=== PATIENT | female | born 1970 | race American Indian/Alaskan Native ===

== ENCOUNTER 2017-02-20 22:37 | Emergency (ER) | payer SELFPAY ==
[2017-02-20 22:37] VITALS: BMI 33.9
[2017-02-20 22:45] VITALS: BP 146/94; PULSE 98; RESP 16; TEMP 98.6; O2SAT 97
--- NOTE | 2017-02-20 23:14 | C.PDOC ---
History Of Present Illness 46 year old female presents to the ER with a complaint of swelling to the right chest area. Patient is s/p bilateral mastectomy for gender reassignment and states she noticed swelling near the right mastectomy site. Denies chest pain, drainage, back pain, or SOB. Time Seen by Provider: 02/20/17 22:53 Chief Complaint (Nursing): Breast Problem History Per: Patient History/Exam Limitations: no limitations Onset/Duration Of Symptoms: Days Current Symptoms Are (Timing): Still Present Recent travel outside of the [place]: No Past Medical History Reviewed: Historical Data, Nursing Documentation, Vital Signs Vital Signs: Last Vital Signs Temp 98.6 F 02/20/17 22:41 Pulse 98 H 02/20/17 22:41 Resp 16 02/20/17 22:41 BP 146/94 H 02/20/17 22:41 Pulse Ox 97 02/21/17 01:41 - Medical History PMH: Asthma Family History: States: Unknown Family Hx - Social History Hx Tobacco Use: No Hx Alcohol Use: No Hx Substance Use: No - Immunization History Hx Tetanus Toxoid Vaccination: Yes Hx Influenza Vaccination: No Hx Pneumococcal Vaccination: No Review Of Systems Constitutional: Negative for: Fever, Chills Cardiovascular: Negative for: Chest Pain Respiratory: Negative for: Shortness of Breath Musculoskeletal: Negative for: Back Pain Skin: Positive for: Other (Swelling to right chest) Physical Exam - Physical Exam Appears: Non-toxic, No Acute Distress Skin: Warm, Dry Head: Atraumatic, Normacephalic Eye(s): bilateral: Normal Inspection Chest: Other (Scar across anterior chest wall with mildly protruding skin flap to right lateral chest wall at axillary line. No tenderness, erythema, warmth, or fluctuance. Incision site well healed.) Cardiovascular: Rhythm Regular Respiratory: Normal Breath Sounds, No Rales, No Rhonchi, No Wheezing Neurological/Psych: Oriented x3, Normal Speech ED Course And Treatment O2 Sat by Pulse Oximetry: 97 (Room air) Pulse Ox Interpretation: Normal Progress Note: Patient reassured and instructed to follow up with surgeon for further evaluation. Disposition Counseled Patient/Family Regarding: Diagnosis, Need For Followup, Rx Given - Disposition Referrals: PMD, PMD [Other] Disposition: HOME/ ROUTINE Disposition Time: 23:11 Condition: STABLE Additional Instructions: Please follow up with your surgeon for further evaluation Return to ER if worse Forms: [employer] (Lao), General Discharge Instructions - Clinical Impression Clinical Impression: Encounter for medical assessment - PA / HEAD OF GEOGRAPHY / Resident Statement MD/DO has reviewed & agrees with the documentation as recorded. - Scribe Statement The provider has reviewed the documentation as recorded by the Scribe Sathya Ureña All medical record entries made by the Karoibe were at my direction and personally dictated by me. I have reviewed the chart and agree that the record accurately reflects my personal performance of the history, physical exam, medical decision making, and the department course for this patient. I have also personally directed, reviewed, and agree with the discharge instructions and disposition.
== END 2017-02-20 23:47 | disposition home or self-care (01) ==
LOC: C.ER 22:37
DX: Z00.8 Encounter for other general examination (principal)

== ENCOUNTER 2018-02-25 18:12 | Emergency (ER) | payer OTHER ==
[2018-02-25 18:19] VITALS: BMI 31.4
[2018-02-25 18:21] VITALS: BP 138/94; PULSE 100; TEMP 98.7; O2SAT 99
--- NOTE | 2018-02-25 19:18 | C.PDOC ---
Time Seen by Provider: 02/25/18 19:07 Chief Complaint (Nursing): ENT Problem Past Medical History Vital Signs: Last Vital Signs Temp 98.7 F 02/25/18 18:19 Pulse 100 H 02/25/18 18:19 Resp 20 02/25/18 18:19 BP 138/94 H 02/25/18 18:19 Pulse Ox 99 02/25/18 18:19 - Medical History PMH: Asthma Denies: Chronic Kidney Disease Family History: States: Unknown Family Hx - Social History Hx Tobacco Use: No Hx Alcohol Use: No Hx Substance Use: No - Immunization History Hx Tetanus Toxoid Vaccination: Yes Hx Influenza Vaccination: No Hx Pneumococcal Vaccination: No ED Course And Treatment O2 Sat by Pulse Oximetry: 99 Disposition Counseled Patient/Family Regarding: Diagnosis, Need For Followup, Rx Given - Disposition Referrals: [facility] [Outside] Disposition: HOME/ ROUTINE Disposition Time: 19:15 Condition: STABLE Additional Instructions: follow up with your doctor within 2 days call to make an appointment take medications as prescribed return to ER if symptoms worsens or progress Prescriptions: Amoxicillin 875 mg PO BID #20 tablet Naproxen [Naprosyn] 500 mg PO BID PRN #16 tab PRN Reason: Pain, Moderate (4-7) Instructions: Ear Infections (Otitis Media) (DC) Forms: [facility] (Malay), General Discharge Instructions, Work Excuse - Clinical Impression Clinical Impression: Otitis media
--- NOTE | 2018-02-25 19:20 | C.PDOC ---
History Of Present Illness 47 y/o female comes in to ED complaining of right ear pain x2 days. Patient denies fever, chills, cough, or any medical problems. Patient has no other complaints. Time Seen by Provider: 02/25/18 19:07 Chief Complaint (Nursing): ENT Problem History Per: Patient History/Exam Limitations: None Onset/Duration Of Symptoms: Days Current Symptoms Are (Timing): Still Present Past Medical History Reviewed: Historical Data, Nursing Documentation, Vital Signs Vital Signs: Last Vital Signs Temp 98.7 F 02/25/18 18:19 Pulse 100 H 02/25/18 18:19 Resp 20 02/25/18 18:19 BP 138/94 H 02/25/18 18:19 Pulse Ox 99 02/25/18 18:19 - Medical History PMH: Asthma Denies: Chronic Kidney Disease Family History: States: No Known Family Hx - Social History Hx Tobacco Use: No Hx Alcohol Use: No Hx Substance Use: No - Immunization History Hx Tetanus Toxoid Vaccination: Yes Hx Influenza Vaccination: No Hx Pneumococcal Vaccination: No Review Of Systems Except As Marked, All Systems Reviewed And Found Negative. ENT: Positive for: Ear Pain Physical Exam - Physical Exam Appears: Non-toxic, No Acute Distress Skin: Warm, Dry Head: Atraumatic, Normacephalic Eye(s): bilateral: Normal Inspection Ear(s): Right: TM Erythema Oral Mucosa: Moist Throat: Normal Neck: Supple Chest: Symmetrical Cardiovascular: Rhythm Regular, No Murmur Respiratory: Normal Breath Sounds, No Rales, No Rhonchi, No Wheezing Gastrointestinal/Abdominal: Soft, No Tenderness Extremity: Bilateral: Normal Color And Temperature, Normal ROM Neurological/Psych: Oriented x3, Normal Speech ED Course And Treatment O2 Sat by Pulse Oximetry: 99 (RA) Pulse Ox Interpretation: Normal Medical Decision Making Medical Decision Making: Impression: Otitis Media Plan: --Amoxil 500 mg PO --Motrin 600 mg PO --Tylenol PO Disposition - Disposition Referrals: [facility] [Outside] Disposition: HOME/ ROUTINE Disposition Time: 20:00 Condition: STABLE Additional Instructions: follow up with your doctor within 2 days call to make an appointment take medications as prescribed return to ER if symptoms worsens or progress Prescriptions: RX: Amoxicillin 875 mg PO BID #20 tablet Naproxen [Naprosyn] 500 mg PO BID PRN #16 tab PRN Reason: Pain, Moderate (4-7) Instructions: Ear Infections (Otitis Media) (DC) Forms: General Discharge Instructions, [facility] (Greenlandic), Work Excuse - Clinical Impression Clinical Impression: Otitis media - Scribe Statement The provider has reviewed the documentation as recorded by the Karoibe Kimberli Carballo Provider Attestation: All medical record entries made by the Karoibe were at my direction and personally dictated by me. I have reviewed the chart and agree that the record accurately reflects my personal performance of the history, physical exam, medical decision making, and the department course for this patient. I have also personally directed, reviewed, and agree with the discharge instructions and disposition.
[2018-02-25 19:48] VITALS: RESP 18
== END 2018-02-25 19:47 | disposition home or self-care (01) ==
LOC: C.ER 18:12
DX: H66.90 Otitis media, unspecified, unspecified ear (principal)

== ENCOUNTER 2018-02-26 00:25 | Emergency (ER) | payer OTHER ==
[2018-02-26 00:25] VITALS: BMI 31.4
[2018-02-26 00:32] VITALS: BP 144/97; PULSE 94; TEMP 98.9; O2SAT 98
--- NOTE | 2018-02-26 00:47 | C.PDOC ---
History Of Present Illness 47 year old female presents to the ER with a complaint of moderate pain to the right ear. Patient was seen and discharged a few hours earlier for the same, given Rx for naproxen and amoxicillin, first dose given in the ER, she states no pharmacy was open so she was unable fill Rx or get OTC medication. Denies new symptoms, trauma, or fever. Time Seen by Provider: 02/26/18 00:34 Chief Complaint (Nursing): ENT Problem History Per: Patient History/Exam Limitations: None Onset/Duration Of Symptoms: Hrs Current Symptoms Are (Timing): Still Present Quality (Ear): Other (Right ear pain) Past Medical History Reviewed: Historical Data, Nursing Documentation, Vital Signs Vital Signs: Last Vital Signs Temp 98.9 F 02/26/18 00:30 Pulse 94 H 02/26/18 00:30 Resp 16 02/26/18 00:30 BP 144/97 H 02/26/18 00:30 Pulse Ox 98 02/26/18 00:30 - Medical History PMH: Asthma Denies: Chronic Kidney Disease Family History: States: Unknown Family Hx - Social History Hx Tobacco Use: No Hx Alcohol Use: No Hx Substance Use: No - Immunization History Hx Tetanus Toxoid Vaccination: Yes Hx Influenza Vaccination: No Hx Pneumococcal Vaccination: No Review Of Systems Constitutional: Negative for: Fever ENT: Positive for: Ear Pain (Right). Negative for: Throat Pain Respiratory: Negative for: Cough Physical Exam - Physical Exam Appears: Non-toxic Skin: Normal Color, Warm, Dry Head: Atraumatic, Normacephalic, No Swelling (Facial) Eye(s): bilateral: Normal Inspection Ear(s): Left: Normal, Right: Other (Tenderness to tragal area, yellowish discharge to canal, no decreased visualized TM due to fluids) Oral Mucosa: Moist Throat: Normal, No Erythema, No Exudate Neck: Normal, Supple, No Other (Swelling) Neurological/Psych: Oriented x3, Normal Speech ED Course And Treatment O2 Sat by Pulse Oximetry: 98 (Room air) Pulse Ox Interpretation: Normal Progress Note: Toradol administered for pain, she reports improvement of pain. Patient is resting comfortably in no acute distress, vitals are stable, patient strongly advised to fill out Rx and follow up with PMD. Disposition Counseled Patient/Family Regarding: Diagnosis, Need For Followup - Disposition Disposition: HOME/ ROUTINE Disposition Time: 00:45 Condition: STABLE Additional Instructions: Please follow up with PMD or ENT Take medications as directed Return to ER if worse Instructions: Serous Otitis Media (DC) Forms: [employer] (French) - Clinical Impression Clinical Impression: Encounter for medical assessment, Otitis media - PA / AUTO TECHNICIAN MECHANIC / Resident Statement MD/DO has reviewed & agrees with the documentation as recorded. - Scribe Statement The provider has reviewed the documentation as recorded by the Scribflaca Ureña All medical record entries made by the Karoibflaca were at my direction and personally dictated by me. I have reviewed the chart and agree that the record accurately reflects my personal performance of the history, physical exam, medical decision making, and the department course for this patient. I have also personally directed, reviewed, and agree with the discharge instructions and disposition.
[2018-02-26 00:54] VITALS: RESP 20
== END 2018-02-26 00:53 | disposition home or self-care (01) ==
LOC: C.ER 00:25
DX: H66.91 Otitis media, unspecified, right ear (principal)
CPT/HCPCS: 96372; 99283; J1885

== ENCOUNTER 2018-04-07 00:18 | Emergency (ER) | payer OTHER ==
[2018-04-07 00:18] VITALS: BMI 31.4
--- NOTE | 2018-04-07 00:47 | C.PDOC ---
History Of Present Illness 47 y/o female with no PMH presents to the ED c/o right leg pain s/p injury this evening. Pt was walking down the stairs to take out the trash and tripped, getting the right ankle caught in between the stairs and railing, twisting the ankle. Pt landed on the right knee. NO head strike or LOC. Has not taken any medication for pain. Able to ambulate, although with pain. Denies open wounds, pain elsewhere, numbness, paresthesia, weakness, headache, vision changes, dizziness, neck pain, back pain, or any other associated symptoms. Time Seen by Provider: 04/07/18 00:45 Chief Complaint (Nursing): Lower Extremity Problem/Injury Past Medical History Vital Signs: Last Vital Signs Temp 97.9 F 04/07/18 00:27 Pulse 76 04/07/18 00:27 Resp 18 04/07/18 00:27 BP 127/83 04/07/18 00:27 Pulse Ox 99 04/07/18 00:27 - Medical History PMH: Asthma Denies: Chronic Kidney Disease Family History: States: Unknown Family Hx - Social History Hx Tobacco Use: No Hx Alcohol Use: No Hx Substance Use: No - Immunization History Hx Tetanus Toxoid Vaccination: No Hx Influenza Vaccination: Yes Hx Pneumococcal Vaccination: No Review Of Systems Constitutional: Negative for: Fever, Chills Eyes: Negative for: Vision Change ENT: Negative for: Nose Congestion, Throat Pain Cardiovascular: Negative for: Chest Pain, Palpitations, Light Headedness Respiratory: Negative for: Cough, Shortness of Breath, Sputum Gastrointestinal: Negative for: Nausea, Vomiting, Abdominal Pain, Diarrhea, Constipation Genitourinary: Negative for: Dysuria, Frequency Musculoskeletal: Positive for: Leg Pain (right knee), Foot Pain (right), Other (right ankle pain). Negative for: Neck Pain, Back Pain Skin: Negative for: Rash, Bruising Neurological: Negative for: Weakness, Numbness, Confusion, Altered Mental Status, Headache, Dizziness Physical Exam - Physical Exam Appears: Well, Non-toxic, No Acute Distress Skin: Normal Color, Warm, Dry Head: Atraumatic, Normacephalic, No Tenderness, No Abrasion Eye(s): bilateral: Normal Inspection, PERRL, EOMI Ear(s): Bilateral: Normal (no hemotypanum) Nose: Normal Throat: Normal Neck: Normal, Normal ROM, No Midline Cervical Tenderness, No Paracervical Tenderness, Supple Cardiovascular: Rhythm Regular Respiratory: Normal Breath Sounds Gastrointestinal/Abdominal: Soft, No Tenderness Back: Normal Inspection, No Vertebral Tenderness, No Muscle Spasm, No Paraspinal Tenderness Extremity: Normal ROM, Tenderness (right ankle bilateral malleolus and right anterior lateral knee tenderness), No Pedal Edema, No Calf Tenderness, Capillary Refill (<2s), No Deformity, Swelling (mild over bilateral malleolus right ankle) Extremity: Bilateral: Atraumatic, No Pedal Edema, Normal Color And Temperature, Normal ROM Pulses: Left Dorsalis Pedis: Normal, Right Dorsalis Pedis: Normal Neurological/Psych: Oriented x3, Normal Speech, Normal Cognition, Normal Motor, Normal Sensation Gait: Steady ED Course And Treatment O2 Sat by Pulse Oximetry: 99 Medical Decision Making Medical Decision Making: Initial Plan: * Right Knee XR * Right Ankle XR * Right Foot XR * Ibuprofen * Reassess and Disposition Xrays read as negative for acute fracture or dislocation by me. Will splint secondary to pain and difficulty ambulating, pending official read in the AM. Patient placed in right posterior short leg splint by me and given crutches for ambulation. Neurovascular exam remains unchanged after splint application. Pt reports improvement in symptoms with medication and splint. Crutch teaching provided by nursing. Pt was able to demonstrate safe and appropriate use of the crutches prior to discharge. Advised to followup with podiatry tomorrow. Diagnostic testing results and plan of care discussed with patient. Strict ins tructions given regarding prescription use, importance of followup, and signs/symptoms to return to ER including or any other new/worsening symptoms. Pt verbalized understanding of discussion. Patient is A&Ox3, ambulating with steady gait, with vital signs stable for discharge. Disposition - Disposition Referrals: [facility] [Outside] Podiatry Clinic [Outside] Disposition: HOME/ ROUTINE Disposition Time: 01:30 Condition: IMPROVED Additional Instructions: Keep splint on until podiatry followup Use crutches to walk Rest, ice, elevate injured ankle Ibuprofen every 6 hours as needed for pain, take with food Followup with podiatry within 2 days Return to ER with any new/worsening symptoms Prescriptions: Ibuprofen [Motrin Tab] 600 mg PO Q8 #30 tab Instructions: Ankle Sprain (DC) Forms: General Discharge Instructions, [facility] (Guatemalan), Work Excuse - Clinical Impression Clinical Impression: Fall, Ankle sprain
[2018-04-07 02:10] VITALS: BP 139/78; PULSE 78; RESP 19; TEMP 98.6
[2018-04-07 08:28] VITALS: O2SAT 99
--- NOTE | 2018-04-07 13:17 | RAD ---
Date of service: 04/07/2018 PROCEDURE: Right Knee Radiographs. HISTORY: fall, r/o fracture COMPARISON: None. FINDINGS: BONES: No acute fracture. JOINTS: Mild tricompartmental narrowing with trace degenerative spurring. JOINT EFFUSION: None. OTHER FINDINGS: None. IMPRESSION: No demonstrated fracture or dislocation. Mild degenerative changes.
--- NOTE | 2018-04-07 13:18 | RAD ---
Date of service: 04/07/2018 PROCEDURE: Right Ankle Radiographs. Right Foot Radiographs. HISTORY: fall, r/o fracture COMPARISON: None available. FINDINGS: BONES: No acute fracture. Plantar calcaneal spur. JOINTS: Ankle mortise maintained. Talar dome intact SOFT TISSUES: Bimalleolar soft tissue swelling. OTHER FINDINGS: None. IMPRESSION: Bimalleolar soft tissue swelling without demonstrated fracture or dislocation.
== END 2018-04-07 01:58 | disposition home or self-care (01) ==
LOC: C.ER 00:18 → SUPCPDRO 00:18 → C.ER 01:58
DX: S93.401A Sprain of unspecified ligament of right ankle, initial encounter (principal); W10.9XXA Fall (on) (from) unspecified stairs and steps, initial encounter

== ENCOUNTER 2018-04-20 17:35 | Emergency (ER) | payer OTHER ==
[2018-04-20 17:36] VITALS: BMI 31.4
[2018-04-20 17:51] VITALS: BP 152/96; PULSE 92; RESP 18; TEMP 98.8; O2SAT 98
--- NOTE | 2018-04-20 18:58 | C.PDOC ---
History Of Present Illness 47 year old female (transgender female to male) with a history of asthma and mastectomy presents to the emergency department with complaints of facial pain and sinus pressure since yesterday. Patient states that she took benadryl with no relief. Patient reports history of sinus headaches in the past but states that they have never been this bad. Patient denies fever, chills, cough, vomiting, and diarrhea. Time Seen by Provider: 04/20/18 17:54 Chief Complaint (Nursing): ENT Problem History Per: Patient History/Exam Limitations: no limitations Onset/Duration Of Symptoms: Days (1) Current Symptoms Are (Timing): Still Present Location Of Pain: Sinus/es Associated Symptoms: Other (snius pain) Past Medical History Reviewed: Historical Data, Nursing Documentation, Vital Signs Vital Signs: Last Vital Signs Temp 98.8 F 04/20/18 17:48 Pulse 92 H 04/20/18 17:48 Resp 18 04/20/18 17:48 BP 152/96 H 04/20/18 17:48 Pulse Ox 98 04/20/18 17:48 - Medical History PMH: Asthma Denies: Chronic Kidney Disease Surgical History: No Surg Hx Family History: States: No Known Family Hx - Social History Hx Tobacco Use: No Hx Alcohol Use: No Hx Substance Use: No - Immunization History Hx Tetanus Toxoid Vaccination: No Hx Influenza Vaccination: Yes Hx Pneumococcal Vaccination: No Review Of Systems Except As Marked, All Systems Reviewed And Found Negative. Constitutional: Negative for: Fever, Chills ENT: Positive for: Other (sinus pain) Respiratory: Negative for: Cough Gastrointestinal: Negative for: Vomiting, Diarrhea Physical Exam - Physical Exam Appears: Non-toxic, No Acute Distress Skin: Normal Color, Warm, Dry Head: Atraumatic, Normacephalic, Tenderness (facial tenderness to the left-side of the face) Eye(s): bilateral: Normal Inspection, PERRL, EOMI Ear(s): Bilateral: Normal Nose: Normal Oral Mucosa: Moist Throat: Normal, No Erythema, No Exudate, Other (uvula midline) Neck: Normal, Supple Chest: Symmetrical, No Tenderness Cardiovascular: Rhythm Regular, No Murmur Respiratory: Normal Breath Sounds, No Rales, No Rhonchi, No Wheezing Gastrointestinal/Abdominal: Soft, No Tenderness, No Guarding, No Rebound Neurological/Psych: Oriented x3, Normal Speech, Normal Cognition ED Course And Treatment O2 Sat by Pulse Oximetry: 98 (RA) Pulse Ox Interpretation: Normal Medical Decision Making Medical Decision Making: Plan: Amoxicillin 500mg PO Motrin 600mg PO Sudafed 60mg PO Impression: Sinusitis Disposition - Disposition [facility]errals: [facility] [place] [facility] [Outside] [facility] [Outside] Disposition: HOME/ ROUTINE Disposition Time: 18:56 Condition: GOOD Additional Instructions: Take your medications as directed and follow up with [facility]. Prescriptions: Amoxicillin 500 mg PO Q8 #21 tablet Ibuprofen [Motrin] 600 mg PO Q6 #20 tab Pseudoephedrine HCl [Sudafed] 30 mg PO Q6 #12 tablet Instructions: Sinusitis in Adults, Sinusitis, Adult (DC) Forms: [employer] (Filipino) - Clinical Impression Clinical Impression: Sinusitis - Scribe Statement The provider has reviewed the documentation as recorded by the Scribe (Crescencio Lord) Provider Attestation: All medical record entries made by the Scribe were at my direction and personally dictated by me. I have reviewed the chart and agree that the record accurately reflects my personal performance of the history, physical exam, medical decision making, and the department course for this patient. I have also personally directed, reviewed, and agree with the discharge instructions and disposition.
== END 2018-04-20 18:56 | disposition home or self-care (01) ==
LOC: C.ER 17:35
DX: J32.9 Chronic sinusitis, unspecified (principal)